=== PATIENT | female | born 1990 | race Caucasian/White ===

== ENCOUNTER 2018-07-22 10:19 | Emergency (ER) | payer OTHER ==
--- NOTE | 2018-07-22 10:41 | EDPHY ---
H & P Stated Complaint: left ankle injury this morning while hiking Time Seen by Provider: 07/22/18 10:40 HPI/ROS: HPI: This is a 28-year-old female who presents with Chief Complaint: left ankle injury this morning while hiking Location: Left ankle Quality: Injury Duration: This morning Signs and Symptoms: No bleeding, no radiation, no numbness, no weakness, no tingling, no incontinence, + decreased range of motion, + swelling, + pain, no fever Timing: acute Severity:08/28 Context: Patient presents with complaints of accidentally tripping and falling backwards catching her ankle over a rock and twisting it. She reports that she felt immediate constant pain in the lateral aspect. She is unable to bear weight and notes a deformity on the front portion of her ankle. She is able to wiggle her toes but reports decreased range of motion at the ankle. LMP 1-2 weeks ago. Patient is from [place] here visiting. Modifying Factors: None Comment: ROS: see HPI Constitutional: No fever, no chills, no weight loss Eyes: No blurred vision Respiratory: No shortness of breath, no cough Cardiovascular: No chest pain Gastrointestinal: No nausea, no vomiting no diarrhea Genitourinary: No dysuria Extremities: No myalgias Neurologic: No weakness, no numbness Skin: No rashes Hematologic: No bruising, no bleeding MEDICAL/SURGICAL/SOCIAL HISTORY: Medical history: Depression. Takes oral control pills. Surgical history: Denies Social history: Nonsmoker. . CONSTITUTIONAL: Extremely polite and cooperative adult white, awake and alert, no obvious distress HEENT: Atraumatic and normocephalic. NECK: supple, no midline tenderness, flexion 45 degrees, extension 45 degrees, right and left lateral flexion 45 degrees. No meningismus. Cardiovascular: Normal S1/S2, regular rate, regular rhythm, without murmur rub or gallop. PULMONARY/CHEST: Symmetrical and nontender. no crepitus. Clear to auscultation bilaterally. Good air movement. No accessory muscle usage. ABDOMEN: Soft, nondistended, nontender, no ecchymosis. PELVIC: no pain with rocking; bilateral hips flexion 125 degrees, extension 30 degrees, with no pain internal rotation and no pain external rotation. BACK: No midline tenderness, no paraspinous spasm, deep tendon reflexes 2/2, no pain with straight leg raise, No foot drop. Achilles reflexes are equal bilaterally. Able to walk on heels and toes without difficulty. EXTREMITIES: 2/2 pulses, strength 5/5, left Ankle: Obvious deformity noted in the anterior portion with significant swelling noted over the lateral malleolus ; Achilles tendon intact. DIP/PIP/MCP flexion/extension intact with good light touch sensation. no deformities, no clubbing, no cyanosis or edema. NEUROLOGICAL: no focal neuro deficits. GCS 15. Light touch sensation intact. SKIN: Warm and dry, no erythema. no rash. Good capillary refill. Source: Patient Exam Limitations: No limitations - Personal History LMP (Females 10-55): 8-14 Days Ago - Medical/Surgical History Hx Asthma: No Hx Chronic Respiratory Disease: No Hx Diabetes: No Hx Cardiac Disease: No Hx Renal Disease: No Hx Cirrhosis: No Hx Alcoholism: No Hx HIV/AIDS: No Hx Splenectomy or Spleen Trauma: No Other PMH: depression - Social History Smoking Status: Never smoked Constitutional: Initial Vital Signs Temperature (C) 36.6 C 07/22/18 10:22 Heart Rate 93 07/22/18 10:22 Respiratory Rate 18 07/22/18 10:22 Blood Pressure 141/91 H 07/22/18 10:22 O2 Sat (%) 92 07/22/18 10:22 O2 Delivery Mode Room Air Allergies/Adverse Reactions: Penicillins Allergy (Verified 07/22/18 10:22) Home Medications: Medication Instructions Recorded Control 07/22/18 Zoloft 50mg (*) 07/22/18 oxyCODONE/APAP 5/325 [Percocet 1 - 2 tab PO Q4H PRN #20 tab 07/22/18 5/325 (*)] Medical Decision Making - Diagnostics Imaging Results: Imaging Impressions Ankle X-Ray 07/22/18 10:25 Impression: Trimalleolar left ankle fracture dislocation. Ankle X-Ray 07/22/18 11:14 Impression: Reduction and casting of left ankle trimalleolar fracture dislocation. Procedures: Procedure: Dislocation reduction. IV fentanyl 50 mcg given as well as hematoma block of 6 mL of 0.5% bupivacaine without epinephrine. The dislocation of the left ankle was reduced using counter traction technique without complications. Post reduction the patient's neurovascular exam is normal. Post reduction x-ray demonstrates reduction of the joint to the anatomic position. The procedure was performed by myself. Procedure: Splint placement. A 3 way long leg Ortho Glass splint was applied by myself and the Emergency Room semiconductor manufacturing technician. After application of the splint I returned and re-examined the patient. The splint was adequately immobilizing the joint and distal to the splint the patient's circulation and sensation was intact. ED Course/Re-evaluation: X-rays show trimalleolar fracture and dislocation. IV access obtained, given IV fentanyl 50 mcg and placed on cardiac rehabilitation program director. Hematoma block also given for anesthesia. Post reduction films are improved. 3 way long leg Ortho Glass, crutches, ortho follow-up xrays provided on kathy giron as a prescription for Percocet for pain control. No signs of neurovascular compromise/tenting of skin/compartment syndrome/ extremities and joints examined above and below area of concern and are neurovascularly intact. This patient was seen under the supervision of my secondary supervising physician. I evaluated care for this patient independently. Discussed this patient with Dr. Boone. Differential Diagnosis: Ankle injury differential diagnosis includes but is not limited to tibia fracture, fibula fracture, metatarsal fracture, LisFranc fracture, achilles tendon rupture, sprain. - Data Points Medications Given: Discontinued Medications Fentanyl (Sublimaze) 50 mcg IVP EDNOW ONE Stop: 07/22/18 10:47 Last Admin: 07/22/18 11:06 Dose: 50 mcg Departure - Departure Disposition: Home, Routine, Self-Care Clinical Impression: Closed left fibular fracture Qualifiers: Encounter type: initial encounter Fibula location: distal Fracture morphology: torus Qualified Code(s): S82.822A - Torus fracture of lower end of left fibula, initial encounter for closed fracture Trimalleolar fracture of ankle, closed Qualifiers: Encounter type: initial encounter Laterality: left Qualified Code(s): S82.852A - Displaced trimalleolar fracture of left lower leg, initial encounter for closed fracture Condition: Good Instructions: Ankle Fracture (ED), Ankle Dislocation (ED), ORIF (DC) Additional Instructions: Keep the splint dry and in place until seen by Orthopedics. Use crutches to aid ambulation. Start with toe-touch weight-bearing status. Take Tylenol 650 mg every 4 hours and/or Ibuprofen 600 mg every 8 hours with food as needed for pain. Use Percocet every 6 hours as needed for severe/break through pain. Do not use Tylenol and Percocet concomitantly. Apply ice for 30 minutes at a time; 2-3 times per day for the next 1-2 days. Follow up with Orthopedics in 3-5 days at which time they will evaluate and recommend with you if conservative management versus surgery is indicated. Return to the ER immediately if you experience new or worsening pain, discoloration, numbness, tingling, or any other symptoms that concern you. Referrals: Abiel Dunn MD [Medical Doctor] - 1-2 days without fail Prescriptions: oxyCODONE/APAP 5/325 [Percocet 5/325 (*)] 1 - 2 tab PO Q4H PRN #20 tab PRN Reason: Pain, Severe
[2018-07-22] MEDS ORDERED: fentaNYL 100 MCG/2 ML INJ IVP ONE (10:46)
[2018-07-22 12:05] VITALS: BP 141/84
== END 2018-07-22 12:05 | disposition home or self-care (01) ==
PROC: 0SSGXZZ Reposition Left Ankle Joint, External Approach (ICD-10-PCS; principal; 2018-07-22)
DX: S82.822A Torus fracture of lower end of left fibula, initial encounter for closed fracture (principal); S82.852A Displaced trimalleolar fracture of left lower leg, initial encounter for closed fracture; W01.198A Fall on same level from slipping, tripping and stumbling with subsequent striking against other object, initial encounter; Y92.838 Other recreation area as the place of occurrence of the external cause; Y93.01 Activity, walking, marching and hiking
CPT/HCPCS: 96374; J3010; L3925